=== PATIENT | female | born 1955 | race Caucasian/White ===

== ENCOUNTER 2017-12-07 16:42 | Emergency (ER) | payer BC ==
[~2017-12-07] VITALS: Ht 170.2 cm; Wt 72.6 kg
--- OUTSIDE RECORDS SUMMARY | 2017-12-07 16:44 | XMS REPORT | Summary of Care ---
Author Author Joellen Wood R.N. Organization Unknown Address [facility] Phone Unavailable Care Team Providers Care Analytics Consultant Name Role Phone PIERCE DE LEON M.D. Unavailable Joellen Wood R.N. Unavailable Unavailable PIERCE FUNK MD Unavailable Unavailable Unavailable Functional Status Name Dates Details Functional status health issues are not documented Status: Name Dates Details Cognitive status health issues are not documented Status: Problems Name Dates Details Encounter for long-term (current) use of medications (V58.69, Z79.899) Status: Active Preop cardiovascular exam (V72.81, Z01.810) Status: Active Chronic pain of right knee (719.46, M25.561) Status: Active Osteoarthrosis, localized, primary, knee, right (715.16, M17.11) Status: Active Congestion of right ear (388.8, H93.8X1) Status: Active Dizziness (780.4, R42) Status: Active Medications Name Dates Details Zegerid OTC CAPS TAKE 1 CAPSULE DAILY as needed Active MetFORMIN HCl - 500 MG Oral Tablet TAKE 1 TABLET TWICE A DAY (PATIENT DUE FOR LAB TEST) * Quantity: 180 Refills: 2 PIERCE DE LEON M.D. * Start : 11-Jun-2017 Active Co Q-10 200 MG Oral Capsule TAKE 1 CAPSULE DAILY. * Refills: 0 Active Red Yeast Rice 600 MG Oral Capsule ONE TABLET BY MOUTH ONCE DAILY * Refills: 0 Active Losartan Potassium 50 MG Oral Tablet TAKE 1 TABLET DAILY * Quantity: 90 Refills: 2 PIERCE DE LEON M.D. * Start : 11-Jun-2017 Active Cinnamon TABS take once a day * Refills: 0 Active Allergies and Adverse Reactions Name Dates Details No Known Drug Allergies (Allergy) Status: Active Past Medical History Name Dates Details History of Abnormal glucose (790.29, R73.09) Status: Resolved History of Abnormal weight gain (783.1, R63.5) Status: Resolved History of ALT (SGPT) level raised (790.4, R74.0) Status: Resolved History of Anxiety (300.00, F41.9) Status: Resolved History of ascites (V13.89, Z87.898) Status: Resolved History of cancer antigen 125 (CA-125) measurement (V15.89, Z92.89) Status: Resolved History of Cellulitis of foot, left (682.7, L03.116) Status: Resolved History of Chronic pain of right elbow (719.42, M25.521) Status: Resolved History of conjunctivitis (V12.49, Z86.69) Status: Resolved History of depression (V11.8, Z86.59) Status: Resolved History of earache (V12.49, Z86.69) Status: Resolved History of Essential hypertension, benign (401.1, I10) Status: Resolved History of Essential hypertriglyceridemia (272.1, E78.1) Status: Resolved History of fatigue (V13.89, Z87.898) Status: Resolved History of GERD (gastroesophageal reflux disease) (530.81, K21.9) Status: Resolved History of Heart palpitations (785.1, R00.2) Status: Resolved History of Internal hemorrhoids (455.0, K64.8) Status: Resolved History of Liver hemangioma (228.04, D18.03) Status: Resolved History of Measles without complication (055.9, B05.9) Status: Resolved History of Mixed dyslipidemia (272.2, E78.2) Status: Resolved History of mumps (V12.09, Z86.19) Status: Resolved History of Other fatigue (780.79, R53.83) Status: Resolved History of ovarian cancer (V10.43, Z85.43) Status: Resolved History of Paroxysmal atrial fibrillation (427.31, I48.0) Status: Resolved History of pelvic mass (V13.89, Z87.898) Status: Resolved History of pleural effusion (V12.69, Z87.09) Status: Resolved History of Pre-diabetes (790.29, R73.03) Status: Resolved History of Pulmonary nodule (793.11, R91.1) Status: Resolved History of Right kidney stone (592.0, N20.0) Status: Resolved History of seasonal allergies (V15.09, Z88.9) Status: Resolved History of Snoring (786.09, R06.83) Status: Resolved History of Sore throat (462, J02.9) Status: Resolved History of UTI symptoms (788.99, R39.9) Status: Resolved History of varicella (V12.09, Z86.19) Status: Resolved Procedures Procedure Dates Details History of Treatment Of Lower Leg Fracture Completed History of Complete Colonoscopy Completed History of Total Hip Replacement Completed History of Revision Of Total Hip Arthroplasty Completed History of Thoracentesis (Diagnostic) Completed History of Ovarian Surgery Completed History of Hysterectomy Completed Immunization Name Dates Details Tetanus-Diphtheria Toxoids Td 2-2 LF/0.5ML Intramuscular Suspension on: 29-Dec-2006 Tdap (Adacel) #1 Lot #: [id number] on: 21-May-2017 Fluzone Quadrivalent 0.5 ML Intramuscular Suspension #1 Lot #: [id number] on: 21-May-2017 Family History Name Dates Details Family history of Hypertension (V17.49) Status: Active Family history of Osteoporosis (V17.81) Status: Active Name Dates Details Family history of Heart Disease (V17.49) Status: Active Family history of Hypertension (V17.49) Status: Active Family history of Stroke Syndrome (V17.1) Status: Active Social History Name Dates Details - Status: Name Dates Details Never smoker Vital Signs Date Test Result Details No Known Vitals to report Results Date Description Value Details Results not documented Plan of Care Name Dates Details Planned Observations Planned Goals not documented Instructions Name Dates Details Instructions not documented Encounters Appointment; PIERCE DE LEON M.D. Encounter Diagnosis: Problem not documented On: 26-Feb-2016 8:00 Appointment; PIERCE DE LEON M.D. Encounter Diagnosis: Problem not documented On: 26-Mar-2016 10:30 Appointment; PIERCE DE LEON M.D. Encounter Diagnosis: Problem not documented On: 09-Oct-2016 10:15 Appointment; BRE IBARRA M.D. Encounter Diagnosis: Problem not documented On: 30-Oct-2016 15:00 Appointment; PIERCE DE LEON M.D. Encounter Diagnosis: Problem not documented On: 08-Dec-2016 10:15 Appointment; BRE IBARRA M.D. Encounter Diagnosis: Problem not documented On: 23-Dec-2016 7:00 Appointment; JAYLEEN MCCORMICK P.A. Encounter Diagnosis: Problem not documented On: 02-Jan-2017 11:45 Appointment; CHARLIE ALAMO P.A. Encounter Diagnosis: Problem not documented On: 12-Feb-2017 15:45 Appointment; JAYA BRIONES M.D. Encounter Diagnosis: Problem not documented On: 22-Apr-2017 11:00 Appointment; PIERCE DE LEON M.D. Encounter Diagnosis: Problem not documented On: 21-May-2017 9:30
--- OUTSIDE RECORDS SUMMARY | 2017-12-07 16:44 | XMS REPORT | Clinical Summary ---
Author Author [facility] Address Unknown Phone Unavailable Care Team Providers Care Lab Scientist Name Role Phone Lawrence Massey MD PCP Allergies No Known Allergies Current Medications Prescription Sig. Disp. Refills Start End Date Status Date losartan (COZAAR) 100 MG Take 100 mg by mouth Active tablet daily. metFORMIN (GLUCOPHAGE) Take 1,000 mg by mouth 2 Active 1,000 mg tablet (two) times a day with meals. Active Problems Not on file Encounters Date Type Specialty Care Team Description 04/20/2017 Office Visit Obstetrics and Gynecology Faustino Parks MD Screening for rectal cancer (Primary Dx) 12/08/2016 Hospital Radiology Magdi Massey MD Pre-operative Encounter cardiovascular examination 12/08/2016 Lab Lab Magdi Massey MD Pre-operative cardiovascular examination (Primary Dx) 12/08/2016 Transcribe Access Magdi Massey MD Pre-operative Orders cardiovascular examination (Primary Dx) after 12/06/2016 Family History Medical History Relation Name Comments Heart attack Father No Known Problems Mother Relation Name Status Comments Father Mother Social History Tobacco Use Types Packs/Day Years Used Date Never Smoker Alcohol Use Drinks/Week oz/Week Comments Yes 2 Glasses of 1.2 wine Sex Assigned at Date Recorded Not on file Last Filed Vital Signs Vital Sign Reading Time Taken Blood Pressure 146/90 04/20/2017 11:11 AM CDT Pulse - - Temperature - - Respiratory Rate - - Oxygen Saturation - - Inhaled Oxygen - - Concentration Weight 75.3 kg (166 lb) 04/20/2017 11:11 AM CDT Height - - Body Mass Index - - Plan of Treatment Health Maintenance Due Date Last Done Comments PAP SMEAR 1974 COLONOSCOPY 2003 MAMMOGRAM 2003 ZOSTER VACCINE 2013 INFLUENZA VACCINE 03/31/2018 Results * Occult blood, stool (04/20/2017 11:26 AM) Component Value Ref Range Occult blood, stool Negative Negative Specimen Performing Laboratory Stool [facility] Narrative Performed at:01 - [facility] [id number] Neuropsychologist: Jimmy Montgomery MD, Phone:[phone] * XR Chest 2 Vw (12/08/2016 12:33 PM) Specimen Performing Laboratory [facility] [address] [place] [id number] Narrative EXAMINATION:XR CHEST 2 VW CLINICAL HISTORY:Z01 810 Encounter for preprocedural cardiovascular examination COMPARISON:02/26/2016 IMPRESSION: No acute cardiopulmonary disease. Comments: The heart size is within normal limits. Pulmonary vasculature is within normal limits. There are no focal consolidations or effusions. Regional skeletal structures are within normal limits for age. Procedure Note Interface, Radiology Results Incoming - 12/08/2016 1:33 PM CDT EXAMINATION: XR CHEST 2 VW CLINICAL HISTORY: Z01 810 Encounter for preprocedural cardiovascular examination COMPARISON: 02/26/2016 IMPRESSION: No acute cardiopulmonary disease. Comments: The heart size is within normal limits. Pulmonary vasculature is within normal limits. There are no focal consolidations or effusions. Regional skeletal structures are within normal limits for age. * Urinalysis screen and microscopy, with reflex to culture (12/08/2016 11:55 AM) Component Value Ref Range Specimen site Clean catch Color, UA Straw Appearance, UA Clear Specific gravity, UA 1.004 1.001 - 1.035 pH, UA 6.0 5.0 - 8.5 Protein, UA Negative Negative Glucose, UA Negative Negative Ketones, UA Negative Negative Bilirubin, UA Negative Negative Blood, UA Negative Negative Nitrite, UA Negative Negative Urobilinogen, UA <2.0 <2.0 Leukocyte esterase, UA Moderate (A) Negative Epithelial cells, UA <1 /HPF Round epithelial cells, <1 0 - 1 /HPF UA WBC, UA <1 0 - 4 /HPF RBC, UA None seen 0 - 2 /HPF Bacteria, UA None seen None seen Yeast, UA None seen Yeast with pseudohyphae, None seen UA Specimen Performing Laboratory Urine [facility] DEPARTMENT OF PATHOLOGY AND GENOMIC MEDICINE [address] [place] [address] * Estimated GFR (12/08/2016 11:55 AM) Component Value Ref Range GFR Non Af Amer 72 mL/min/1.73 m2 GFR Af Amer 88 mL/min/1.73 m2 Comment: Chronic kidney disease: <60 mL/min/1.73m2 Kidney failure: <15 mL/min/1.73m2 The estimated GFR is calculated from the IDMS-traceable Modification of Diet in Renal Disease Equation. The accuracy of the calculation is poor when the creatinine is normal. Calculated values >90 mL/min/1.73m2 are not reported. This equation has not been validated in children (<18 years), women, the elderly (>70 years), or ethnic groups other than Caucasians and Americans. Specimen Performing Laboratory Plasma specimen [facility] DEPARTMENT OF PATHOLOGY AND GENOMIC MEDICINE [address] [place] [address] * Vitamin D 25 hydroxy level (12/08/2016 11:55 AM) Component Value Ref Range Vitamin D, 25-hydroxy 27.4 (L) 30.0 - 150.0 ng/mL Comment: This assay reports the sum of 25-hydroxy vitamin D3 and 25-hydroxy vitamin D2. Reference range: 0-17 years: Deficiency: less than 20ng/mL Optimum level: greater than or equal to 20 ng/mL. 18 years and older: Deficiency: less than 20ng/mL Insufficiency: 20-29 ng/mL Optimum Level: 30-80 ng/mL The assay reportable range is 0.0-96.0 ng/mL. Levels higher than 150 ng/mL may be associated with toxicity. If toxicity is clinically suspected and the reported result is >96.0 ng/mL, contact lab for alternative methods to obtain a definitive level. If separate quantitation of 25-hydroxy vitamin D3 and 25-hydroxy vitamin D2 is needed, please contact lab for alternative methods. Specimen Performing Laboratory Blood [facility] DEPARTMENT OF PATHOLOGY AND GENOMIC MEDICINE [address] [place] [address] * Partial thromboplastin time, activated (12/08/2016 11:55 AM) Component Value Ref Range PTT 24.4 23.0 - 36.0 sec Comment: PTT therapeutic range for unfractionated heparin is 61.0-112.0 seconds which corresponds to Anti-Xa 0.3-0.7 U/ml. Specimen Performing Laboratory Blood [facility] DEPARTMENT OF PATHOLOGY AND [facility] [address] [place] [address] * Prothrombin time with INR (12/08/2016 11:55 AM) Component Value Ref Range Prothrombin time 12.9 12.0 - 15.0 sec INR 1.0 Comment: The International Normalized Ratio (INR) is a therapeutic monitoring tool for patients who are stable on oral anticoagulant therapy. An INR of 2.0-3.0 is suggested for deep vein thrombosis/pulmonary embolism. Specimen Performing Laboratory Blood [facility] DEPARTMENT OF PATHOLOGY AND [facility] [address] [place] [address] * Gram stain (12/08/2016 11:55 AM) Component Value Ref Range Gram stain isolate Rare WBC's No organisms seen Comment: Specimen Information Specimen Source: Urine Specimen Site: Clean catch Specimen Performing Laboratory Urine [facility] DEPARTMENT OF PATHOLOGY AND [address] [address] * CBC with platelet and differential (12/08/2016 11:55 AM) Component Value Ref Range WBC 4.75 4.50 - 11.00 k/uL RBC 4.42 4.20 - 5.50 m/uL HGB 14.4 12.0 - 16.0 g/dL HCT 45.4 37.0 - 47.0 % MCV 102.7 (H) 82.0 - 100.0 fL MCH 32.6 27.0 - 34.0 pg MCHC 31.7 31.0 - 37.0 g/dL RDW - SD 50.6 37.0 - 55.0 fL MPV 13.1 8.8 - 13.2 fL Platelet count 194 150 - 400 k/uL Nucleated RBC 0.00 /100 WBC Neutrophils 49.6 39.0 - 69.0 % Lymphocytes 25.7 25.0 - 45.0 % Monocytes 7.8 0.0 - 10.0 % Eosinophils 15.6 (H) 0.0 - 5.0 % Basophils 1.1 (H) 0.0 - 1.0 % Immature granulocytes 0.2Comment: "Immature granulocytes" 0.0 - 1.0 % (promyelocytes, myelocytes, metamyelocytes) Specimen Performing Laboratory Blood [facility] DEPARTMENT OF PATHOLOGY AND [facility] [address] [place] [id number] * Urine culture (12/08/2016 11:55 AM) Component Value Ref Range Urine culture isolate Mixed Gram positive milagro 10-1 cfu/ml (A) Comment: Specimen Information Specimen Source: Urine Specimen Site: Clean catch Urine culture isolate Gram negative rods <10-1 cfu/ml (A) Specimen Performing Laboratory Urine [facility] DEPARTMENT OF PATHOLOGY AND GENOMIC MEDICINE [address] [place] [address] * Comprehensive metabolic panel (12/08/2016 11:55 AM) Component Value Ref Range Sodium 142 135 - 148 mEq/L Potassium 4.4 3.5 - 5.0 mEq/L Chloride 104 98 - 112 mEq/L CO2 22 (L) 24 - 31 mEq/L Anion gap 16 (H) 7 - 15 mEq/L Comment: Starting from November , anion gap calculation no longer incorporates potassium. Please note the change. BUN 13 8 - 23 mg/dL Creatinine 0.8 0.5 - 0.9 mg/dL Glucose 83 65 - 99 mg/dL Calcium 9.1 8.8 - 10.2 mg/dL Protein 7.4 6.3 - 8.3 g/dL Comment: [place] 4.6-7.0 g/dL 1 week 4.4-7.6 g/dL 7 months-1year 5.1-7.3 g/dL 1-2 years 5.6-7.5 g/dL >3 years 6.0-8.0 g/dL 18-150 6.3-8.3 g/dL Albumin 4.1 3.5 - 5.0 g/dL A/G ratio 1.2 0.7 - 3.8 Alkaline phosphatase 66 35 - 104 U/L AST 28 10 - 35 U/L ALT 31 5 - 50 U/L Total bilirubin 0.5 0.0 - 1.2 mg/dL Specimen Performing Laboratory Plasma specimen [facility] DEPARTMENT OF PATHOLOGY AND GENOMIC MEDICINE [address] [place] [address] after 12/06/2016 Insurance Payer Benefit Subscriber ID Type Phone Address Plan / Group BCBS BCBS xxxxxxxxxxxx PPO CHOICE [id number] TOMAS PPO Home:
--- OUTSIDE RECORDS SUMMARY | 2017-12-07 16:44 | XMS REPORT ---
Author Author [facility] Address Unknown Phone Unavailable Care Team Providers Care Composition Professor Name Role Phone CHERY VILLALOBOS Unavailable Unavailable Problems This patient has no known problems. Allergies, Adverse Reactions, Alerts This patient has no known allergies or adverse reactions. Medications This patient has no known medications. Encounters Start Date/Time End Date/Time Encounter Type Admission Type Attending Clinicians Care Facility Care Department Encounter ID 2017-08-18 09:11:00 2017-09-18 23:59:00 Outpatient C CHERY VILLALOBOS [facility] [place] [id number]
[2017-12-07 19:20] VITALS: BP 129/80
== END 2017-12-07 18:45 | disposition home or self-care (01) ==
LOC: FSED 16:42
DX: R00.2 Palpitations (principal); I48.0 Paroxysmal atrial fibrillation; I10 Essential (primary) hypertension
CPT/HCPCS: 93005; 99282